=== PATIENT | male | born 1950 | race Caucasian/White ===

== ENCOUNTER → 2024-03-09 07:47 | Outpatient (REF) | payer MEDICARE, OTHER, SELFPAY | LOC: WOUND 07:47 | PROVIDERS: ATTENDING PHYSICIAN Surgery; FAMILY PHYSICIAN Physician Assistant Medical | DX: L97.213 Non-pressure chronic ulcer of right calf with necrosis of muscle (principal); I87.2 Venous insufficiency (chronic) (peripheral); I73.9 Peripheral vascular disease, unspecified; J44.9 Chronic obstructive pulmonary disease, unspecified; I10 Essential (primary) hypertension | CPT/HCPCS: 11043; 99204 ==

== ENCOUNTER → 2024-03-16 08:36 | Outpatient (REF) | payer MEDICARE, OTHER, SELFPAY | LOC: WOUND 08:36 | PROVIDERS: ATTENDING PHYSICIAN Surgery; FAMILY PHYSICIAN Physician Assistant Medical | DX: L97.213 Non-pressure chronic ulcer of right calf with necrosis of muscle (principal); I87.2 Venous insufficiency (chronic) (peripheral); I73.9 Peripheral vascular disease, unspecified; J44.9 Chronic obstructive pulmonary disease, unspecified; I10 Essential (primary) hypertension; F17.210 Nicotine dependence, cigarettes, uncomplicated | CPT/HCPCS: 11043 ==

== ENCOUNTER → 2024-04-06 09:40 | Outpatient (REF) | payer MEDICARE, OTHER, SELFPAY | LOC: WOUND 09:40 | PROVIDERS: ATTENDING PHYSICIAN Surgery; FAMILY PHYSICIAN Physician Assistant Medical | DX: L97.213 Non-pressure chronic ulcer of right calf with necrosis of muscle (principal); I87.2 Venous insufficiency (chronic) (peripheral); I73.9 Peripheral vascular disease, unspecified; J44.9 Chronic obstructive pulmonary disease, unspecified; I10 Essential (primary) hypertension; F17.210 Nicotine dependence, cigarettes, uncomplicated | CPT/HCPCS: 97597 ==

== ENCOUNTER → 2024-04-20 08:39 | Outpatient (REF) | payer MEDICARE, OTHER, SELFPAY | LOC: WOUND 08:39 | PROVIDERS: ATTENDING PHYSICIAN Surgery; FAMILY PHYSICIAN Physician Assistant Medical | DX: L97.213 Non-pressure chronic ulcer of right calf with necrosis of muscle (principal); I87.2 Venous insufficiency (chronic) (peripheral); I73.9 Peripheral vascular disease, unspecified; J44.9 Chronic obstructive pulmonary disease, unspecified; I10 Essential (primary) hypertension; F17.210 Nicotine dependence, cigarettes, uncomplicated | CPT/HCPCS: 11042 ==

== ENCOUNTER → 2024-05-04 09:37 | Outpatient (REF) | payer MEDICARE, OTHER, SELFPAY | LOC: WOUND 09:37 | PROVIDERS: ATTENDING PHYSICIAN Surgery; FAMILY PHYSICIAN Physician Assistant Medical | DX: L97.213 Non-pressure chronic ulcer of right calf with necrosis of muscle (principal); I87.2 Venous insufficiency (chronic) (peripheral); I73.9 Peripheral vascular disease, unspecified; F17.210 Nicotine dependence, cigarettes, uncomplicated; J44.9 Chronic obstructive pulmonary disease, unspecified; I10 Essential (primary) hypertension | CPT/HCPCS: 11042 ==

== ENCOUNTER → 2024-05-18 09:07 | Outpatient (REF) | payer MEDICARE, OTHER, SELFPAY | LOC: WOUND 09:07 | PROVIDERS: ATTENDING PHYSICIAN Surgery; FAMILY PHYSICIAN Physician Assistant Medical | DX: L97.213 Non-pressure chronic ulcer of right calf with necrosis of muscle (principal); I87.2 Venous insufficiency (chronic) (peripheral); I73.9 Peripheral vascular disease, unspecified; J44.9 Chronic obstructive pulmonary disease, unspecified; I10 Essential (primary) hypertension | CPT/HCPCS: 99213 ==

== ENCOUNTER → 2024-05-25 09:07 | Outpatient (REF) | payer MEDICARE, OTHER, SELFPAY | LOC: WOUND 09:07 | PROVIDERS: ATTENDING PHYSICIAN Surgery; FAMILY PHYSICIAN Physician Assistant Medical | DX: L97.213 Non-pressure chronic ulcer of right calf with necrosis of muscle (principal); I87.2 Venous insufficiency (chronic) (peripheral); I73.9 Peripheral vascular disease, unspecified; F17.210 Nicotine dependence, cigarettes, uncomplicated; J44.9 Chronic obstructive pulmonary disease, unspecified; I10 Essential (primary) hypertension | CPT/HCPCS: 99212 ==

== ENCOUNTER → 2024-07-06 09:19 | Outpatient (REF) | payer MEDICARE, OTHER, SELFPAY | LOC: RAD 09:19 | PROVIDERS: ATTENDING PHYSICIAN Physician Assistant Medical | DX: M54.9 Dorsalgia, unspecified (principal) | CPT/HCPCS: 71046; 73010 ==

== ENCOUNTER 2024-07-26 18:16 | Emergency (ER) | payer SELFPAY ==
[2024-07-26 18:24] VITALS: BP 169/62
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
[2024-07-26 20:21] VITALS: BP 159/68
== END 2024-07-26 20:22 | disposition home or self-care (01) ==
LOC: EMR 18:16
PROVIDERS: EMERGENCY PHYSICIAN Emergency Medicine; FAMILY PHYSICIAN Physician Assistant Medical
DX: S20.219A Contusion of unspecified front wall of thorax, initial encounter (principal); V43.52XA Car driver injured in collision with other type car in traffic accident, initial encounter; Y92.410 Unspecified street and highway as the place of occurrence of the external cause; I10 Essential (primary) hypertension; E78.00 Pure hypercholesterolemia, unspecified; F17.200 Nicotine dependence, unspecified, uncomplicated; Z85.46 Personal history of malignant neoplasm of prostate
CPT/HCPCS: 99283; 71046; 93005

== ENCOUNTER → 2025-05-02 08:23 | Outpatient (REF) | payer OTHER, SELFPAY | LOC: DHVS 08:23 | PROVIDERS: ATTENDING PHYSICIAN Physician Assistant Medical | DX: F17.210 Nicotine dependence, cigarettes, uncomplicated (principal); L97.213 Non-pressure chronic ulcer of right calf with necrosis of muscle; I73.9 Peripheral vascular disease, unspecified | CPT/HCPCS: 93922; 93925 ==

== ENCOUNTER → 2025-05-07 08:38 | Outpatient (REF) | payer OTHER, SELFPAY | LOC: HWRAD 08:38 | PROVIDERS: ATTENDING PHYSICIAN Physician Assistant Medical | DX: F17.210 Nicotine dependence, cigarettes, uncomplicated (principal) | CPT/HCPCS: 71271 ==